=== PATIENT | female | born 1995 | race African-American/Black ===

== ENCOUNTER 2018-10-11 08:35 | Emergency (ER) | payer OTHER ==
[~2018-10-11] VITALS: Ht 172.7 cm; Wt 93.0 kg
--- NOTE | 2018-10-11 08:45 | NUR ---
FHT dopplered in 160's; no audible decelerations Addendum: 10/11/18 at 0853 by ZOLTAN AGUIAR RN -Zoltan Aguiar RN
[2018-10-11] MEDS ORDERED: TETRACAIN/EPI/LIDO GEL 3ML SYR TP ONE ×2 (08:50→09:14)
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
[2018-10-11] MEDS ORDERED: DIPHTH/TETANUS/ACEL. PERTUSSIS IM ONLY ONE ×2 (08:55→09:51)
[2018-10-11 08:59] LABS: PLATELET COUNT, AUTOMATED 153 K/uL (150-450)
[2018-10-11] MEDS ORDERED: [UNRECOGNIZED DRUG - OTHER] IM ONLY ONE (09:15)
[2018-10-11 10:15] VITALS: BP 129/74; Ht 172.7 cm; Wt 93.0 kg
[2018-10-11] MEDS ORDERED: ACETAMINOPHEN 500 MG TAB PO PRN (11:15)
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
[2018-10-11] MEDS ORDERED: ACETAMINOPHEN 160 MG/5 ML UDC PO ONE (11:45)
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
== END 2018-10-11 10:09 | disposition other institution (70) ==
LOC: ER 08:55 → EDBD 08:55 → OB 09:58 → UNDOADMIN 09:58 → UNDODISIN 14:00
DX: O26.892 Other specified pregnancy related conditions, second trimester (principal); Z3A.25 25 weeks gestation of pregnancy
CPT/HCPCS: 36415; 82040; 82247; 82310; 82374; 82435; 82565; 82947; 84075; 84132; 84155; 84295; 84450; 84460; 84520; 85025; 85460; 86850; 86900; 86901; 90471; 90715; 99213; 99284

== ENCOUNTER → 2018-10-11 | Outpatient (CLI) | payer OTHER ==
[2018-10-11 10:15] VITALS: BMI 31.2
== END ==
LOC: AMB 08:01
PROVIDERS: ATTEND Nurse Practitioner
DX: O9A.212 Injury, poisoning and certain other consequences of external causes complicating pregnancy, second trimester (principal); Z3A.22 22 weeks gestation of pregnancy; S01.81XA Laceration without foreign body of other part of head, initial encounter; V49.9XXA Car occupant (driver) (passenger) injured in unspecified traffic accident, initial encounter
CPT/HCPCS: A0425; A0429